=== PATIENT | male | born 1930 | race Caucasian/White ===

== ENCOUNTER 2016-11-21 15:55 | Emergency (ER) | payer MEDICARE ==
[~2016-11-21 15:55] MED LIST: ACCUNE1 INH; ACET500CAP PO; ADVIL PO; ATV.5 PO; AVAP150 PO; AVAPRO300 MG PO; BEN25 PO; BENTYL10 PO; BETAPACE80 PO; C1 PO; C25; C25 PO; CARDCD240 PO; CARDCD300 PO; CARDIZEM LA360 MG PO; CENTRUM TAB1 TAB PO; CHERATUSSIN PO; CLARIT10 PO; CLEOCIN300 MG PO; DCN100 PO; DIL2TAB PO; FERROUS SULF325 M1 PO; FIBER; FLAG500TAB PO; HYZAAR1 TAB PO; K-TABS10 MEQ PO; KDUR10 PO; KLOR-CON 1010 MEQ PO; KLOR-CON M2020 MEQ PO; LEVAQUIN750 MG PO; LIPITOR20 PO; METAMUCIL CAN7 OZ PO; METPAKSF PO; MICRO-K10 MEQ PO; MUCINEX600 MG PO; MULTIPLE VIT PO; MULTIVIT/MIN PO; MULTIVITAMI1 PO; NATURL FIBER68 % PO; NORV25 PO; NORV5 PO; P10; POLYMYXIN B/ OP; PROBIOTIC CAP PO; PROBIOTIC OTC PO; PROSCAR5 PO; PROTONIX PO; PROTONIX20 MG PO; RYTHMOL150 MG PO; RYTHMOL300 MG PO; SIMPLY SLEEP25 MG PO; SLEEP AID25 MG PO; SORINE160 MG PO; SPIRIVA INH; SPIRO25 PO; SYMBICORT 160/41 INH INH; TRAZ50 PO; ULTRAM50 PO; VENTOLIN HFA INH; VIB100 PO; X5 PO; ZESTORETIC PO; ZESTORETIC1 TA1 PO; ZOCOR40 PO; ZOFRANODT8 PO; [UNRECOGNIZED DRUG - OTHER]; [UNRECOGNIZED DRUG - OTHER] PO
[2016-11-21] MEDS ORDERED: [UNRECOGNIZED DRUG - OTHER] PO (17:06)
[2016-11-21 17:07] LABS: BASOPHILS 0.6 %; BASOPHILS ABSOLUTE 0.05 10/3/uL (0.0-0.16); EOSINOPHILS ABSOLUTE 0.18 10/3/uL (0.0-0.53); ER CBC TAT 0 Hrs 05 Mins; HEMATOCRIT 43.5 % (40.0-51.0); HEMOGLOBIN 13.8 g/dL (13.6-17.8); IMMATURE GRANULOCYTES 0.1 %; IMMATURE GRANULOCYTES ABSOLUTE 0.01 10/3/uL (0.0-0.11); LYMPHOCYTES ABSOLUTE 1.62 10/3/uL (0.67-4.30); MEAN CORPUS HGB CONC 31.7 g/dL (32.0-36.0); MEAN CORPUSCULAR HEMOGLOB 31.2 pg (26.0-34.0); MEAN CORPUSCULAR VOLUME 98.4 fL (80-100); MEAN PLATELET VOLUME 12.8 fL (9.2-13.0); MONOCYTES 13.7 %; MONOCYTES ABSOLUTE 1.23 10/3/uL (0.21-1.20); NEUTROPHILS 65.6 %; NEUTROPHILS ABSOLUTE 5.92 10/3/uL (2.02-8.40); PLATELET COUNT 142 10/3/uL (150-400); RBC DISTRIBUTION WIDTH 14.3 % (12.0-16.0); RED CELL COUNT 4.42 10/6/uL (4.7-6.1)
[2016-11-21] MEDS ORDERED: ULTRAM50 PO (17:07)
[2016-11-21] MEDS ORDERED: BETAPACE80 PO (17:07)
[2016-11-21] MEDS ORDERED: AVAPRO300 MG PO (17:07)
[2016-11-21] MEDS ORDERED: KLOR-CON M2020 MEQ PO (17:07)
[2016-11-21] MEDS ORDERED: PROSCAR5 PO (17:07)
[2016-11-21 17:08] LABS: MANUAL DIFF NO %
[2016-11-21] MEDS ORDERED: TEARS PURE OPH (17:08)
[2016-11-21] MEDS ORDERED: NORV5 PO (17:08)
[2016-11-21] MEDS ORDERED: VENTOLIN HFA INH (17:08)
[2016-11-21] MEDS ORDERED: SPIRO25 PO (17:08)
[2016-11-21] MEDS ORDERED: LIPITOR20 PO (17:09)
[2016-11-21] MEDS ORDERED: C25 PO (17:09)
[2016-11-21] MEDS ORDERED: FIBERCON PO (17:10)
[2016-11-21] MEDS ORDERED: PROBIOTIC PO (17:10)
[2016-11-21] MEDS ORDERED: TRAZ50 PO (17:10)
[2016-11-21] MEDS ORDERED: BEN25 PO (17:11)
[2016-11-21] MEDS ORDERED: ALBUTEROL0.083 % INH (17:11)
[2016-11-21] MEDS ORDERED: 8 HOUR650 MG PO (17:11)
[2016-11-21 17:20] LABS: INFLUENZA A SCREEN NEGATIVE (NEGATIVE); INFLUENZA B SCREEN NEGATIVE (NEGATIVE)
[2016-11-21 17:25] LABS: BUN (BLOOD UREA NITROGEN) 17 MG/DL (6-23); CALCIUM, SERUM 8.4 MG/DL (8.5-10.4); CHLORIDE, SERUM 111 MMOL/L (96-112); CO2 (CARBON DIOXIDE) 28 MMOL/L (24-34); CREATININE 0.83 MG/DL (0.70-1.30); GFR AFRICAN AMERICAN 91 ML/MIN (>=60); GFR NON AFRICAN AMERICAN 79 ML/MIN (>=60); GLUCOSE, SERUM 91 MG/DL (60-99); POTASSIUM, SERUM 4.3 MMOL/L (3.5-5.3); SGOT(AST) 17 U/L (5-40); SGPT(ALT) 23 U/L (5-65); SODIUM, SERUM 143 MMOL/L (135-148); TOTAL BILIRUBIN 0.9 MG/DL (0-1.2); TOTAL PROTEIN 6.4 G/DL (6.0-8.5); TROPONIN I <0.02 NG/ML (<0.05)
[2016-11-21 17:26] LABS: ALBUMIN 3.2 G/DL (3.5-5.0); ALKALINE PHOSPHATASE 88 U/L (45-117); GLOBULIN 3.2 G/DL (2.5-4.1)
== END 2016-11-21 18:19 | disposition home or self-care (01) ==
LOC: ER 15:55
PROVIDERS: Specialist
DX: J02.9 Acute pharyngitis, unspecified (principal); I50.9 Heart failure, unspecified; J18.9 Pneumonia, unspecified organism; I48.91 Unspecified atrial fibrillation
CPT/HCPCS: 71010; 80053; 83880; 84484; 85025; 87040; 87070; 87804; 87880; 94640; 99285; A9270-GY